=== PATIENT | male | born 1940 | race Caucasian/White ===

== ENCOUNTER 2025-08-14 11:51 | Inpatient (IN) | payer MEDICARE, OTHER ==
[~2025-08-14] VITALS: Ht 177.8 cm; Wt 72.3 kg
[2025-08-14 12:49] LABS: BASO # 0.0 10^3/uL (0.0-0.2); BASO % 0.3 % (0.0-1.0); EOS # 0.0 10^3/uL (0.0-0.5); EOS % 0.0 % (0.0-3.0); LYMPH # 1.5 10^3/uL (1.5-5.0); LYMPH % 14.5 % (24.0-44.0); MONO # 0.6 10^3/uL (0.0-0.8); MONO % 5.7 % (2.0-8.0); NEUTROPHILS # 8.3 10^3/uL (1.5-8.5); NEUTROPHILS % 78.7 % (36.0-66.0); PLATELET COUNT, AUTOMATED 210 10^3/uL (150-450)
[2025-08-14] MEDS: NS (Normal Saline) 0.9% 1,000 ML IV ONE (12:57)
[2025-08-14 13:03] LABS: OSMOLALITY SERUM 322.0 MOSM/KG (280-301)
[2025-08-14 13:08] LABS: CPK CREATINE PHOSPHOKINASE 42 U/L (46-171)
[2025-08-14 13:09] LABS: C REACTIVE PROTEIN QUANTITATIV < 0.50 MG/DL (<1.0)
[2025-08-14 13:10] LABS: ALT/SGPT 17.0 U/L (7.0-40); AST/SGOT 16.0 U/L (<34); CALCIUM LEVEL 11.6 MG/DL (8.3-10.6); CARBON DIOXIDE LEVEL 27.0 MMOL/L (20-31); CHLORIDE LEVEL 94.0 MMOL/L (98-107); CREATININE FOR GFR 4.42 MG/DL (0.70-1.30); GLOMERULAR FILTRATION RATE 12.6 (>35); MAGNESIUM LEVEL 2.0 MG/DL (1.8-2.4); POTASSIUM SERUM 4.6 MMOL/L (3.5-5.1); SODIUM LEVEL 130.0 MMOL/L (136-145)
[2025-08-14 13:33] LABS: AMORPHOUS SEDIMENT SMALL (NEGATIVE); APPEARANCE, URINE CLEAR (CLEAR); BACTERIA, URINE AUTO NEGATIVE (NEGATIVE); BILIRUBIN, URINE AUTO NEGATIVE (NEGATIVE); BLOOD, URINE BLOOD 1+ (NEGATIVE); GLUCOSE, URINE (UA) AUTO 1+ mg/dL (NEGATIVE); KETONE, URINE AUTO NEGATIVE (NEGATIVE); LEUKOCYTE ESTERASE, URINE AUTO NEGATIVE (NEGATIVE); NITRITE, URINE AUTO NEGATIVE (NEGATIVE); PROTEIN, URINE AUTO 2+ mg/dL (NEGATIVE); RBC, URINE AUTO 0 /HPF (0-3); SPECIFIC GRAVITY URINE AUTO 1.010 (1.002-1.035); SQUAMOUS EPITHELIAL CELL UR AU 0 /HPF (0-6); UROBILINOGEN, URINE AUTO 0.2 mg/dL (0.0-2.0); WBC, URINE AUTO 0 /HPF (0-3)
[2025-08-14 13:50] LABS: POTASSIUM RANDOM URINE 55.0 MMOL/L; SODIUM,RANDOM URINE 29 MMOL/L
[2025-08-14 14:01] LABS: VENOUS BASE EXCESS -0.2 (-2.0-2.0); VENOUS HCO3 24.9 MMOL/L (23.0-27.0); VENOUS O2 SATURATION 53.6 % (60.0-80.0); VENOUS PARTIAL PRESSURE CO2 42.4 mmHg (38.0-50.0); VENOUS PARTIAL PRESSURE O2 30.3 mmHg (30.0-50.0); VENOUS PH 7.386 UNITS (7.330-7.430); VENOUS STANDARD HCO3 23.7 MMOL/L; VENOUS TOTAL CO2 26.2 MMOL/L (24.0-28.0)
[2025-08-14 14:06] LABS: TOTAL PROTEIN,RANDOM URINE 134.8 MG/DL (0.0-14.0)
[2025-08-14 14:39] LABS: IRON (FE) 92.0 UG/DL (65-175); PERCENT SATURATION 35.7 % (19.7-50.0)
[2025-08-14] MEDS: NS (Normal Saline) 0.9% 1,000 ML IV SCH (14:41)
[2025-08-14 14:49] LABS: PHOSPHORUS LEVEL 4.4 MG/DL (2.4-5.1); PSA SCREENING 1.09 NG/ML (< 4.00); PTH INTACT 7.5 PG/ML (18.5-88.0); TOTAL 25(OH) VITAMIN D 45.3 NG/ML (20.0-100.0); VITAMIN B12 LEVEL 522.0 PG/ML (211-911)
[2025-08-14] MEDS ORDERED: MOM 30 ML SUSPENSION UDC PO PRN (14:50)
[2025-08-14] MEDS ORDERED: MAALOX 30 ML SUSP *UDC PO PRN (14:50)
[2025-08-14] MEDS ORDERED: ACETAMINOPHEN 325 MG TAB PO PRN (14:50)
[2025-08-14 14:51] LABS: FREE T4 1.1 NG/DL (0.89-1.76)
[2025-08-14 15:31] LABS: CALCIUM,RANDOM URINE 12.0 MG/DL
[2025-08-14] MEDS ORDERED: PRED20TA PO (15:49)
[2025-08-14] MEDS ORDERED: CYCL-707 PO (15:49)
[2025-08-14] MEDS ORDERED: DOXY100C3 PO (15:49)
[2025-08-14] MEDS ORDERED: HOME MED LIST COMPLETE! XX SCH (15:55)
[2025-08-14] MEDS ORDERED: hydrALAZINE 20 MG/ML 1 ML VIAL IV PRN (16:30)
[2025-08-14] MEDS: NYSTATIN 500,000 UNITS/5 ML SUSP UDC SS SCH (17:38)
[2025-08-14 21:30] VITALS: BP 158/70; TEMP 98.2; O2SAT 99
[2025-08-14] MEDS: HEPARIN SOD 5000 UNITS/ML 1 ML VIAL/SYRINGE SC SCH (21:51)
[2025-08-14] MEDS: DOCUSATE SODIUM 100 MG CAPSULE PO SCH (21:51)
[2025-08-15 00:01] VITALS: BP 149/75; TEMP 98; O2SAT 99
[2025-08-15 03:05] VITALS: BP 150/66; TEMP 98; O2SAT 97
[2025-08-15 05:18] LABS: BASO # 0.0 10^3/uL (0.0-0.2); BASO % 0.3 % (0.0-1.0); EOS # 0.1 10^3/uL (0.0-0.5); EOS % 1.1 % (0.0-3.0); LYMPH # 1.3 10^3/uL (1.5-5.0); LYMPH % 20.7 % (24.0-44.0); MONO # 0.3 10^3/uL (0.0-0.8); MONO % 5.3 % (2.0-8.0); NEUTROPHILS # 4.4 10^3/uL (1.5-8.5); NEUTROPHILS % 72.0 % (36.0-66.0); PLATELET COUNT, AUTOMATED 156 10^3/uL (150-450)
[2025-08-15 05:44] LABS: CALCIUM LEVEL 11.0 MG/DL (8.3-10.6); CARBON DIOXIDE LEVEL 27.0 MMOL/L (20-31); CHLORIDE LEVEL 107.0 MMOL/L (98-107); CREATININE FOR GFR 4.16 MG/DL (0.70-1.30); GLOMERULAR FILTRATION RATE 13.6 (>35); MAGNESIUM LEVEL 2.0 MG/DL (1.8-2.4); POTASSIUM SERUM 4.4 MMOL/L (3.5-5.1); SODIUM LEVEL 141.0 MMOL/L (136-145)
[2025-08-15 08:00] VITALS: BP 151/72; TEMP 98.3; O2SAT 98
[2025-08-15] MEDS: PANTOPRAZOLE 40MG VIAL IV SCH (08:47)
[2025-08-15 12:39] VITALS: BP 123/60; TEMP 98.7; O2SAT 98
[2025-08-15 16:03] VITALS: BP 152/66; O2SAT 99
[2025-08-15 19:58] VITALS: BP 127/60; TEMP 98.1; O2SAT 98
[2025-08-16 00:02] VITALS: BP 131/62; TEMP 97.8; O2SAT 96
[2025-08-16 04:26] VITALS: BP 116/57; TEMP 97.9; O2SAT 95
[2025-08-16 05:37] LABS: BASO # 0.0 10^3/uL (0.0-0.2); BASO % 0.4 % (0.0-1.0); EOS # 0.1 10^3/uL (0.0-0.5); EOS % 2.2 % (0.0-3.0); LYMPH # 1.3 10^3/uL (1.5-5.0); LYMPH % 28.5 % (24.0-44.0); MONO # 0.4 10^3/uL (0.0-0.8); MONO % 8.4 % (2.0-8.0); NEUTROPHILS # 2.7 10^3/uL (1.5-8.5); NEUTROPHILS % 59.6 % (36.0-66.0); PLATELET COUNT, AUTOMATED 149 10^3/uL (150-450)
[2025-08-16 06:02] LABS: CALCIUM LEVEL 10.6 MG/DL (8.3-10.6); CARBON DIOXIDE LEVEL 27.0 MMOL/L (20-31); CHLORIDE LEVEL 106.0 MMOL/L (98-107); CREATININE FOR GFR 3.76 MG/DL (0.70-1.30); GLOMERULAR FILTRATION RATE 15.3 (>35); MAGNESIUM LEVEL 1.9 MG/DL (1.8-2.4); POTASSIUM SERUM 4.2 MMOL/L (3.5-5.1); SODIUM LEVEL 140.0 MMOL/L (136-145)
[2025-08-16 08:25] VITALS: BP 142/63; TEMP 98.7; O2SAT 95
[2025-08-17 02:47] LABS: T P ELECTROPHORESIS SO 7.7 g/dL (6.1-8.1)
[2025-08-17 13:02] LABS: FREE KAPPA LIGHT CHAINS SERUM 1002.4 mg/L (3.3-19.4); FREE LAMBDA LIGHT CHAINS SERUM 12.6 mg/L (5.7-26.3); KAPPA/LAMBDA RATIO SERUM 79.56 (0.26-1.65)
[2025-08-17 13:17] LABS: PROTEIN CREATININE RATIO 2593 mg/g creat (25-148); T PROTEIN CREATININE RATIO 2.593 (0.025-0.148); UPEP CREATININE 59 mg/dL (20-320); UPEP TOTAL PROTEIN 153 mg/dL (5-25)
[2025-08-17 14:08] LABS: VITAMIN D 1,25 DIHYDROXY 8.4 pg/mL (24.8-81.5)
== END 2025-08-16 10:37 | disposition left against medical advice (07) | DRG 682 ==
LOC: M ED 11:51 → M ED INP 16:29 → M PCU 21:27
PROVIDERS: ADMIT Internal Medicine; ATTEND Internal Medicine
DX: N17.9 Acute kidney failure, unspecified (principal); G93.6 Cerebral edema; C90.00 Multiple myeloma not having achieved remission; E87.1 Hypo-osmolality and hyponatremia; J84.9 Interstitial pulmonary disease, unspecified; M84.58XA Pathological fracture in neoplastic disease, other specified site, initial encounter for fracture; B37.0 Candidal stomatitis; M10.9 Gout, unspecified; K40.20 Bilateral inguinal hernia, without obstruction or gangrene, not specified as recurrent; K59.09 Other constipation; H47.312 Coloboma of optic disc, left eye; E83.52 Hypercalcemia; M48.02 Spinal stenosis, cervical region; D63.0 Anemia in neoplastic disease; I10 Essential (primary) hypertension; M16.0 Bilateral primary osteoarthritis of hip; Z85.820 Personal history of malignant melanoma of skin; Z79.52 Long term (current) use of systemic steroids; Z79.899 Other long term (current) drug therapy; Z94.89 Other transplanted organ and tissue status